=== PATIENT | female | born 1985 | race Caucasian/White ===

== ENCOUNTER 2019-12-20 21:02 | Outpatient (CLI) | payer OTHER ==
[~2019-12-20 21:02] MED LIST: PRENA1 CHEW TA1.4 MG
== END 2019-12-21 08:39 | disposition home or self-care (01) ==
LOC: OBS/DEL 21:02
PROVIDERS: ATTEND Obstetrics & Gynecology
DX: O26.892 Other specified pregnancy related conditions, second trimester (principal); N20.0 Calculus of kidney

== ENCOUNTER 2020-04-01 13:45 | Inpatient (IN) | payer OTHER ==
[~2020-04-01] VITALS: Ht 149.9 cm; Wt 58.1 kg
[2020-04-11] MEDS ORDERED: IRON325 MG PO (22:49)
== END 2020-04-14 14:03 | disposition home or self-care (01) | DRG 768 ==
LOC: OB/GYN 04-11 22:33 → LDR 04-11 22:33 → OB/GYN 04-12 08:44 → SURG-SUITE 04-12 15:22 → OB/GYN 04-18 13:45
PROVIDERS: ADMIT Obstetrics & Gynecology; ATTEND Obstetrics & Gynecology
PROC: 10E0XZZ Delivery of Products of Conception, External Approach (ICD-10-PCS; principal; 2020-04-11)
PROC: 0DQR0ZZ Repair Anal Sphincter, Open Approach (ICD-10-PCS; 2020-04-11)
PROC: 0W8NXZZ Division of Female Perineum, External Approach (ICD-10-PCS; 2020-04-11)
PROC: 4A1HXFZ Monitoring of Products of Conception, Cardiac Rhythm, External Approach (ICD-10-PCS; 2020-04-11)
DX: O70.4 Anal sphincter tear complicating delivery, not associated with third degree laceration (principal); Z37.0 Single live birth; Z3A.39 39 weeks gestation of pregnancy; Z20.828 Contact with and (suspected) exposure to other viral communicable diseases

== ENCOUNTER 2022-02-06 15:05 | Outpatient (CLI) | payer OTHER ==
[~2022-02-06 15:05] MED LIST changes: +IRON325 MG PO
== END 2022-02-06 16:05 | disposition home or self-care (01) ==
LOC: NST 15:05
PROVIDERS: ATTEND Obstetrics & Gynecology Gynecology
DX: Z34.83 Encounter for supervision of other normal pregnancy, third trimester (principal)